=== PATIENT | male | born 1970 | race Caucasian/White ===

== ENCOUNTER 2022-07-03 12:55 | Outpatient (CLI) | payer BC, SELFPAY | END 2022-07-03 12:56 | disposition home or self-care (01) | LOC: RAD 12:58 | PROVIDERS: PCP Family Medicine; Visit Provider Internal Medicine | DX: I34.0 Nonrheumatic mitral (valve) insufficiency (principal) | CPT/HCPCS: 93306 ==

== ENCOUNTER 2022-07-06 08:14 | Outpatient (CLI) | payer BC, SELFPAY ==
[2022-07-06 15:16] LABS: Albumin* 4.6 g/dL (3.3-5.0); Chloride* 103 mmol/L (96-114)
[2022-07-06 15:17] LABS: Potassium* 4.4 mmol/L (3.6-5.1); Sodium* 140 mmol/L (135-149)
[2022-07-06 15:19] LABS: Alanine Aminotransferase* 45 U/L (4-50); Alkaline Phosphatase* 84 U/L (40-150); Aspartate Amino Transferase* 33 U/L (12-35); Bilirubin Total* 0.6 mg/dL (0.1-1.5); Blood Urea Nitrogen* 13 mg/dL (7-30); Carbon Dioxide* 31 mmol/L (20-32); Cholesterol* 165 mg/dL (90-199); Creatinine* 0.9 mg/dL (0.5-1.5); Estimated Glomerular Filt Rate 104 ml/min; Glucose* 104 mg/dL (60-115); Triglycerides* 186 mg/dL (40-149)
[2022-07-06 15:20] LABS: Calcium* 9.6 mg/dL (8.4-10.6); HDL Cholesterol* 43 mg/dL (>=40); LDL Cholesterol Calculated 85 mg/dL (<100)
[2022-07-06 16:01] LABS: Hepatitis C Virus Antibody* Negative (Negative)
== END 2022-07-06 08:15 | disposition home or self-care (01) ==
PROVIDERS: PCP Family Medicine; Visit Provider Family Medicine
DX: Z00.00 Encounter for general adult medical examination without abnormal findings (principal); E78.5 Hyperlipidemia, unspecified; I10 Essential (primary) hypertension; Z11.59 Encounter for screening for other viral diseases
CPT/HCPCS: 80053; 80061; 86803